=== PATIENT | female | born 1995 | race American Indian/Alaskan Native ===

== ENCOUNTER 2018-10-26 23:36 | Emergency (ER) | payer MEDICAID, OTHER ==
[2018-10-27] MEDS ORDERED: TYLENOL ONE (00:27)
[2018-10-27] MEDS ORDERED: DUONEB *Not for PRN Use IH ONE ×2 (00:28→00:34)
[2018-10-27] MEDS ORDERED: TYLENOL PO ONE (00:33)
[2018-10-27 00:56] LABS: Basophils # (Auto) 0.1 K/mm3 (0.0-0.1); Basophils % (Auto) 0.4 % (0.0-1.8); Eosinophils # (Auto) 0.1 K/mm3 (0.0-0.4); Eosinophils % (Auto) 0.3 % (0.0-4.3); Hematocrit 43.1 % (30.3-42.9); Hemoglobin 14.5 gm/dl (10.1-14.3); Lymphocytes # (Auto) 2.4 K/mm3 (1.2-5.4); Lymphocytes % (Auto) 13.2 % (13.4-35.0); Mean Corpuscular HGB Conc 34 % (30-34); Mean Corpuscular Volume 88 fl (79-97); Monocytes # (Auto) 0.6 K/mm3 (0.0-0.8); Monocytes % (Auto) 3.6 % (0.0-7.3); Platelet Count 310 K/mm3 (140-440); Red Blood Count 4.92 M/mm3 (3.65-5.03)
[2018-10-27 01:14] LABS: BUN/Creatinine Ratio 17; Blood Urea Nitrogen 10 mg/dL (7-17); Calcium 9.6 mg/dL (8.4-10.2); Hemolysis Index 5
--- NOTE | 2018-10-27 01:53 | XRay Report ---
FINAL REPORT PROCEDURE: XR CHEST ROUTINE 2V TECHNIQUE: PA and lateral chest radiographs were obtained. CPT 91870 HISTORY: cough and fever COMPARISON: No prior studies are available for comparison. FINDINGS: Heart: Normal. Mediastinum/Vessels: Normal. Lungs/Pleural space: Normal. Bony thorax: No acute osseous abnormality. Other: IMPRESSION: Normal examination.
--- NOTE | 2018-10-27 03:00 | Emergency Department Report ---
- General Chief Complaint: Adult Asthma Stated Complaint: SHORTNESS OF BREATH Time Seen by Provider: 10/27/18 01:57 Source: patient Mode of arrival: Ambulatory Limitations: No Limitations - History of Present Illness Initial Comments: 22-year-old female with history of asthma presents to ED with URI symptoms. She reports cough, fever, shortness of breath, body aches, nausea since yesterday. She states she does not currently have an inhaler. MD Complaint: fever, cough -: days(s) (1) Severity: moderate Consistency: constant Improves With: nothing Worsens With: nothing Associated Symptoms: fever, myalgias, cough, shortness of breath - Related Data Home Medications Medication Instructions Recorded Confirmed Last Taken ALBUTEROL Inhaler (OR & NICU) 2 puff IH QID PRN 04/25/15 09/07/15 Unknown [ProAir HFA Inhaler] ALBUTEROL NEB's [Proventil 0.083% 2.5 mg IH TID PRN 04/25/15 09/07/15 Unknown NEBS] Previous Rx's Medication Instructions Recorded Last Taken Type traMADol [Ultram] 50 mg PO Q6HR PRN #7 tablet 03/26/16 Unknown Rx ALBUTEROL Inhaler(NF) [VENTOLIN 1 puff IH Q4HR PRN #1 inha 10/27/18 Unknown Rx Inhaler(NF)] Naproxen [Naprosyn] 500 mg PO BID #20 tablet 10/27/18 Unknown Rx predniSONE [Prednisone] 50 mg PO DAILY #5 tablet 10/27/18 Unknown Rx Allergies Allergy/AdvReac Type Severity Reaction Status Date / Time No Known Allergies Allergy Unverified 04/25/15 18:50 ED Review of Systems ROS: Stated complaint: SHORTNESS OF BREATH Other details as noted in HPI Comment: All other systems reviewed and negative Constitutional: fever Respiratory: cough, shortness of breath Cardiovascular: denies: chest pain Gastrointestinal: nausea Musculoskeletal: myalgia ED Past Medical Hx - Past Medical History Hx Asthma: Yes Additional medical history: Miscarriage - Surgical History Past Surgical History?: No - Social History Smoking Status: Never Smoker Substance Use Type: None - Medications Home Medications: Home Medications Medication Instructions Recorded Confirmed Last Taken Type ALBUTEROL Inhaler (OR & NICU) 2 puff IH QID PRN 07/25/15 12/07/15 Unknown History [ProAir HFA Inhaler] ALBUTEROL NEB's [Proventil 0.083% 2.5 mg IH TID PRN 04/25/15 09/07/15 Unknown History NEBS] traMADol [Ultram] 50 mg PO Q6HR PRN #7 tablet 03/26/16 Unknown Rx ALBUTEROL Inhaler(NF) [VENTOLIN 1 puff IH Q4HR PRN #1 inha 10/27/18 Unknown Rx Inhaler(NF)] Naproxen [Naprosyn] 500 mg PO BID #20 tablet 10/27/18 Unknown Rx predniSONE [Prednisone] 50 mg PO DAILY #5 tablet 10/27/18 Unknown Rx ED Physical Exam - General Limitations: No Limitations General appearance: alert, in no apparent distress - Head Head exam: Present: atraumatic, normocephalic - Eye Eye exam: Present: normal appearance - ENT ENT exam: Present: mucous membranes moist - Neck Neck exam: Present: normal inspection - Respiratory Respiratory exam: Present: normal lung sounds bilaterally. Absent: respiratory distress, wheezes, rales, rhonchi - Cardiovascular Cardiovascular Exam: Present: normal rhythm, tachycardia - GI/Abdominal GI/Abdominal exam: Present: soft. Absent: distended, tenderness - Extremities Exam Extremities exam: Present: normal inspection - Neurological Exam Neurological exam: Present: alert, oriented X3 - Psychiatric Psychiatric exam: Present: normal affect, normal mood - Skin Skin exam: Present: warm, dry, intact, normal color ED Course Vital Signs 10/27/18 10/27/18 10/27/18 00:17 02:32 03:43 Temperature 100.8 F H 99.4 F Pulse Rate 114 H 84 Respiratory 20 17 Rate Blood Pressure 129/84 Blood Pressure 118/79 [Right] O2 Sat by Pulse 99 98 Oximetry ED Medical Decision Making - Lab Data Result diagrams: 10/27/18 00:46 10/27/18 00:46 - Radiology Data Radiology results: report reviewed, image reviewed - Differential Diagnosis pneumonia, influenza, URI, asthma Critical care attestation.: If time is entered above; I have spent that time in minutes in the direct care of this critically ill patient, excluding procedure time. ED Disposition Clinical Impression: URI (upper respiratory infection), Asthma with acute exacerbation in adult Disposition: [id number] TO HOME OR SELFCARE Is pt being admited?: No Condition: Stable Instructions: Asthma (ED), Upper Respiratory Infection (ED) Prescriptions: ALBUTEROL Inhaler(NF) [VENTOLIN Inhaler(NF)] 1 puff IH Q4HR PRN #1 inha PRN Reason: Wheezing Naproxen [Naprosyn] 500 mg PO BID #20 tablet predniSONE [Prednisone] 50 mg PO DAILY #5 tablet Referrals: HANDY RIOS MD [Primary Care Provider] - 3-5 Days
[2018-10-27 03:44] VITALS: BP 118/79
== END 2018-10-27 03:44 | disposition home or self-care (01) ==
LOC: ED 23:36
DX: J06.9 Acute upper respiratory infection, unspecified (principal); J45.901 Unspecified asthma with (acute) exacerbation; M79.10 Myalgia, unspecified site
CPT/HCPCS: 36415; 71046; 80048; 84703; 85025; 87400; 94640